=== PATIENT | female | born 1955 | race Asian ===

== ENCOUNTER → 2018-03-31 | Outpatient (CLI) | payer BC ==
[2018-03-31 08:29] LABS: Basophils # (auto) 0.1 uL; Basophils % (auto) 1.5 % (0.0-2.0); Eosinophils # (auto) 0.1 uL; Hematocrit 41.9 % (36.0-46.0); Hemoglobin 13.8 g/dL (12.2-16.2); Lymphocytes % (auto) 25.3 % (10.0-50.0); Mean Corpuscular Hemoglobin 31.9 pg (28.0-32.0); Mean Corpuscular Volume 96.7 fL (80.0-100.0); Monocytes # (auto) 0.4 uL; Monocytes % (auto) 9.5 % (0.0-12.0); Neutrophils # (auto) 2.4 uL; Neutrophils % (auto) 60.7 % (37.0-80.0); Platelet Count (auto) 290 10^3/uL (140-450); Red Blood Cells 4.33 10^6/uL (4.0-5.20); Red Cell Distribution Width 13.2 % (11.8-14.3); White Blood Cell 3.9 10^3/uL (4.4-10.8)
[2018-03-31 09:26] LABS: Albumin 3.8 g/dL (3.4-5.0); BUN/Creatinine Ratio 24.4; Bilirubin, Total 0.6 mg/dL (0.2-1.0); Calcium 8.7 mg/dL (8.5-10.1); Potassium 4.1 mmol/L (3.5-5.1); Total Protein 7.3 g/dL (6.4-8.2)
== END | disposition home or self-care (01) ==
LOC: LAB 07:48
PROVIDERS: ATTEND Internal Medicine
DX: Z00.01 Encounter for general adult medical examination with abnormal findings (principal); Z12.11 Encounter for screening for malignant neoplasm of colon; E03.9 Hypothyroidism, unspecified
CPT/HCPCS: 36415; 80053; 80061; 82274; 82306; 83036; 84443; 85025

== ENCOUNTER → 2019-03-07 | Outpatient (CLI) | payer BC ==
[2019-03-07 08:50] LABS: Basophils # (auto) 0.1 uL; Basophils % (auto) 1.1 % (0.0-2.0); Eosinophils # (auto) 0.1 uL; Eosinophils % (auto) 2.2 % (0.0-7.0); Hematocrit 40.9 % (36.0-46.0); Lymphocytes % (auto) 22.3 % (10.0-50.0); Mean Corpuscular Hemoglobin 32.7 pg (28.0-32.0); Mean Corpuscular Hgb Conc. 34.2 g/dL (32.0-36.0); Mean Corpuscular Volume 95.6 fL (80.0-100.0); Monocytes # (auto) 0.4 uL; Monocytes % (auto) 9.6 % (0.0-12.0); Neutrophils % (auto) 64.8 % (37.0-80.0); Platelet Count (auto) 384 10^3/uL (140-450); Red Blood Cells 4.28 10^6/uL (4.0-5.20); Red Cell Distribution Width 12.8 % (11.8-14.3); White Blood Cell 4.6 10^3/uL (4.4-10.8)
[2019-03-07 09:10] LABS: Albumin 3.5 g/dL (3.4-5.0); Calcium 8.8 mg/dL (8.5-10.1); Potassium 4.3 mmol/L (3.5-5.1)
[2019-03-07 09:16] LABS: BUN/Creatinine Ratio 15.5; Bilirubin, Total 0.7 mg/dL (0.2-1.0); Total Protein 7.1 g/dL (6.4-8.2)
[2019-03-07 09:29] LABS: Free T4 (Free Thyroxine) 1.15 ng/dL (0.89-1.76)
[2019-03-07 09:30] LABS: Free T3 2.95 pg/mL (2.3-4.2)
== END | disposition home or self-care (01) ==
LOC: LAB 08:20
PROVIDERS: ATTEND Internal Medicine
DX: Z12.11 Encounter for screening for malignant neoplasm of colon (principal); E03.9 Hypothyroidism, unspecified; Z83.3 Family history of diabetes mellitus
CPT/HCPCS: 36415; 80053; 80061; 82043; 82306; 83036; 84439; 84443; 84481; 85025

== ENCOUNTER → 2019-03-09 | Outpatient (CLI) | payer BC | END | disposition home or self-care (01) | LOC: LAB 14:05 | PROVIDERS: ATTEND Internal Medicine | DX: Z12.11 Encounter for screening for malignant neoplasm of colon (principal); E03.9 Hypothyroidism, unspecified; Z83.3 Family history of diabetes mellitus | CPT/HCPCS: 82274 ==

== ENCOUNTER → 2019-03-23 | Outpatient (CLI) | payer BC | END | disposition home or self-care (01) | LOC: XYW 08:58 | PROVIDERS: ATTEND Internal Medicine | DX: I07.1 Rheumatic tricuspid insufficiency (principal) | CPT/HCPCS: 93306 ==

== ENCOUNTER → 2019-05-25 | Outpatient (CLI) | payer BC ==
[~2019-05-25] VITALS: Ht 162.6 cm; Wt 65.8 kg
[~2019-05-25] MED LIST: ADENOSINE 55 MG in GIVE UN-DILUTED 0 ML IV STA
== END | disposition home or self-care (01) ==
LOC: XY 08:58
PROVIDERS: ATTEND Internal Medicine
DX: R07.9 Chest pain, unspecified (principal)
CPT/HCPCS: 78452; 93017; A9500; J0153

== ENCOUNTER → 2019-06-05 | Outpatient (CLI) | payer BC | END | disposition home or self-care (01) | LOC: US 10:57 | PROVIDERS: ATTEND Internal Medicine | DX: E04.1 Nontoxic single thyroid nodule (principal) | CPT/HCPCS: 10005; 10022; 76942; 88172 ==

== ENCOUNTER → 2020-03-26 | Outpatient (CLI) | payer BC ==
[2020-03-26 09:21] LABS: Basophils # (auto) 0 10 ^3/uL (0-0.2); Eosinophils # (auto) 0.1 10 ^3/uL (0-0.8); Hemoglobin 13.5 g/dL (12.2-16.2); Lymphocytes % (auto) 24.5 % (10.0-50.0); Mean Corpuscular Hgb Conc. 32.9 g/dL (32.0-36.0); Mean Corpuscular Volume 97.1 fL (80.0-100.0); Monocytes # (auto) 0.5 10 ^3/uL (0-1.3); Monocytes % (auto) 11.7 % (0.0-12.0); Neutrophils # (auto) 2.5 10 ^3/uL (1.6-8.6); Neutrophils % (auto) 59.8 % (37.0-80.0); Platelet Count (auto) 292 10^3/uL (140-450); Red Blood Cells 4.22 10^6/uL (4.0-5.20); Red Cell Distribution Width 13.2 % (11.8-14.3); White Blood Cell 4.2 10^3/uL (4.4-10.8)
[2020-03-26 09:59] LABS: Albumin 3.9 g/dL (3.4-5.0); Calcium 8.7 mg/dL (8.5-10.1); Potassium 4.1 mmol/L (3.5-5.1)
[2020-03-26 10:06] LABS: BUN/Creatinine Ratio 19.5; Bilirubin, Total 0.6 mg/dL (0.2-1.0); Total Protein 7.1 g/dL (6.4-8.2)
[2020-03-26 10:09] LABS: Free T4 (Free Thyroxine) 1.25 ng/dL (0.89-1.76)
[2020-03-26 10:10] LABS: Free T3 2.96 pg/mL (2.3-4.2)
== END | disposition home or self-care (01) ==
LOC: LAB 08:26
PROVIDERS: ATTEND Internal Medicine
DX: E04.1 Nontoxic single thyroid nodule (principal); E03.9 Hypothyroidism, unspecified; E55.9 Vitamin D deficiency, unspecified; Z83.3 Family history of diabetes mellitus
CPT/HCPCS: 36415; 80053; 80061; 82306; 84439; 84443; 84481; 85025

== ENCOUNTER → 2020-04-02 | Outpatient (CLI) | payer BC | END | disposition home or self-care (01) | LOC: LAB 10:28 | PROVIDERS: ATTEND Internal Medicine | DX: E04.1 Nontoxic single thyroid nodule (principal); E03.9 Hypothyroidism, unspecified; E55.9 Vitamin D deficiency, unspecified; Z83.3 Family history of diabetes mellitus | CPT/HCPCS: 82274 ==

== ENCOUNTER → 2021-03-18 | Outpatient (CLI) | payer BC ==
[2021-03-18 07:38] LABS: Basophils # (auto) 0.1 10 ^3/uL (0-0.2); Basophils % (auto) 0.9 % (0.0-2.0); Eosinophils # (auto) 0.2 10 ^3/uL (0-0.8); Eosinophils % (auto) 3.9 % (0.0-7.0); Hematocrit 41.4 % (36.0-46.0); Hemoglobin 13.9 g/dL (12.2-16.2); Lymphocytes # (auto) 1.7 10 ^3/uL (0.4-5.4); Lymphocytes % (auto) 27.4 % (10.0-50.0); Mean Corpuscular Hemoglobin 32.3 pg (28.0-32.0); Mean Corpuscular Hgb Conc. 33.7 g/dL (32.0-36.0); Mean Corpuscular Volume 95.8 fL (80.0-100.0); Monocytes # (auto) 0.6 10 ^3/uL (0-1.3); Monocytes % (auto) 9.2 % (0.0-12.0); Neutrophils # (auto) 3.6 10 ^3/uL (1.6-8.6); Neutrophils % (auto) 58.6 % (37.0-80.0); Nucleated Red Blood Cells % 0.1 %; Red Blood Cells 4.32 10^6/uL (4.0-5.20); White Blood Cell 6.1 10^3/uL (4.4-10.8)
[2021-03-18 08:11] LABS: Albumin 3.6 g/dL (3.4-5.0); Calcium 8.9 mg/dL (8.5-10.1)
[2021-03-18 08:16] LABS: BUN/Creatinine Ratio 21.1; Bilirubin, Total 0.7 mg/dL (0.2-1.0); Total Protein 7.4 g/dL (6.4-8.2)
== END | disposition home or self-care (01) ==
LOC: LAB 07:11
PROVIDERS: ATTEND Internal Medicine
DX: Z12.11 Encounter for screening for malignant neoplasm of colon (principal); Z00.00 Encounter for general adult medical examination without abnormal findings; E03.9 Hypothyroidism, unspecified; E55.9 Vitamin D deficiency, unspecified
CPT/HCPCS: 36415; 80053; 80061; 82274; 82306; 84439; 84443; 85025

== ENCOUNTER → 2021-07-23 | Outpatient (CLI) | payer BC | END | disposition home or self-care (01) | LOC: LAB 08:18 | PROVIDERS: ATTEND Nurse Practitioner Family | DX: Z20.822 Contact with and (suspected) exposure to COVID-19 (principal) | CPT/HCPCS: C9803; U0003 ==

== ENCOUNTER → 2021-12-02 | Outpatient (CLI) | payer BC ==
[2021-12-02 12:53] LABS: Albumin 3.7 g/dL (3.4-5.0); BUN/Creatinine Ratio 24.1; Calcium 8.6 mg/dL (8.5-10.1); Potassium 4.1 mmol/L (3.5-5.1)
[2021-12-02 12:56] LABS: Bilirubin, Total 0.4 mg/dL (0.2-1.0); Total Protein 7.2 g/dL (6.4-8.2)
== END | disposition home or self-care (01) ==
LOC: LAB 12:25
PROVIDERS: ATTEND Internal Medicine Endocrinology, Diabetes & Metabolism
DX: E03.9 Hypothyroidism, unspecified (principal)
CPT/HCPCS: 36415; 80053; 84439; 84443

== ENCOUNTER → 2022-03-22 | Outpatient (CLI) | payer BC ==
[2022-03-22 08:26] LABS: Basophils # (auto) 0 10 ^3/uL (0-0.2); Basophils % (auto) 0.9 % (0.0-2.0); Eosinophils # (auto) 0.1 10 ^3/uL (0-0.8); Eosinophils % (auto) 2.2 % (0.0-7.0); Hematocrit 41.3 % (36.0-46.0); Hemoglobin 14.2 g/dL (12.2-16.2); Lymphocytes # (auto) 1.6 10 ^3/uL (0.4-5.4); Lymphocytes % (auto) 27.7 % (10.0-50.0); Mean Corpuscular Hemoglobin 32.9 pg (28.0-32.0); Mean Corpuscular Hgb Conc. 34.4 g/dL (32.0-36.0); Mean Corpuscular Volume 95.6 fL (80.0-100.0); Monocytes # (auto) 0.6 10 ^3/uL (0-1.3); Monocytes % (auto) 10.1 % (0.0-12.0); Neutrophils # (auto) 3.3 10 ^3/uL (1.6-8.6); Neutrophils % (auto) 59.1 % (37.0-80.0); Red Blood Cells 4.32 10^6/uL (4.0-5.20); Red Cell Distribution Width 12.9 % (11.8-14.3); White Blood Cell 5.6 10^3/uL (4.4-10.8)
[2022-03-22 09:05] LABS: Potassium 4.1 mmol/L (3.5-5.1)
[2022-03-22 09:18] LABS: Albumin 3.8 g/dL (3.4-5.0); Bilirubin, Total 0.6 mg/dL (0.2-1.0); Calcium 9.1 mg/dL (8.5-10.1); Total Protein 7.4 g/dL (6.4-8.2)
== END | disposition home or self-care (01) ==
LOC: LAB 08:03
PROVIDERS: ATTEND Internal Medicine
DX: E55.9 Vitamin D deficiency, unspecified (principal); E03.9 Hypothyroidism, unspecified; E11.8 Type 2 diabetes mellitus with unspecified complications
CPT/HCPCS: 36415; 80053; 80061; 82270; 82306; 83036; 84443; 85025

== ENCOUNTER → 2022-03-29 | Outpatient (CLI) | payer BC | END | disposition home or self-care (01) | LOC: LAB 13:06 | PROVIDERS: ATTEND Internal Medicine | DX: Z12.11 Encounter for screening for malignant neoplasm of colon (principal) | CPT/HCPCS: 82270 ==

== ENCOUNTER → 2022-04-28 | Outpatient (CLI) | payer BC ==
[2022-04-28 13:13] LABS: BUN/Creatinine Ratio 21.7; Calcium 8.8 mg/dL (8.5-10.1); Potassium 4.1 mmol/L (3.5-5.1)
== END | disposition home or self-care (01) ==
LOC: LAB 11:51
PROVIDERS: ATTEND Internal Medicine
DX: R10.30 Lower abdominal pain, unspecified (principal)
CPT/HCPCS: 36415; 80048

== ENCOUNTER → 2023-01-20 | Outpatient (CLI) | payer OTHER ==
[2023-01-20 10:30] LABS: Basophils # (auto) 0.1 10 ^3/uL (0-0.2); Basophils % (auto) 1.8 % (0.0-2.0); Eosinophils # (auto) 0.2 10 ^3/uL (0-0.8); Eosinophils % (auto) 3.2 % (0.0-7.0); Hematocrit 43.6 % (36.0-46.0); Hemoglobin 14.6 g/dL (12.2-16.2); Lymphocytes # (auto) 1.3 10 ^3/uL (0.4-5.4); Lymphocytes % (auto) 26.3 % (10.0-50.0); Mean Corpuscular Hemoglobin 32.2 pg (28.0-32.0); Mean Corpuscular Hgb Conc. 33.5 g/dL (32.0-36.0); Mean Corpuscular Volume 96.1 fL (80.0-100.0); Monocytes # (auto) 0.5 10 ^3/uL (0-1.3); Monocytes % (auto) 11.1 % (0.0-12.0); Neutrophils # (auto) 2.8 10 ^3/uL (1.6-8.6); Neutrophils % (auto) 57.6 % (37.0-80.0); Nucleated Red Blood Cells % 0.1 %; Red Blood Cells 4.54 10^6/uL (4.0-5.20); Red Cell Distribution Width 12.9 % (11.8-14.3); White Blood Cell 4.9 10^3/uL (4.4-10.8)
[2023-01-20 10:45] LABS: Urine Blood Negative /uL (Negative); Urine Specific Gravity 1.019 (1.001-1.035)
[2023-01-20 11:11] LABS: Calcium 8.8 mg/dL (8.5-10.1)
[2023-01-20 11:17] LABS: BUN/Creatinine Ratio 23.2 (10.0-20.0); Bilirubin, Total 0.6 mg/dL (0.2-1.0); Total Protein 7.5 g/dL (6.4-8.2)
[2023-01-20 11:19] LABS: Free T4 (Free Thyroxine) 1.1 ng/dL (0.89-1.76); T3 Total 1.07 ng/mL (0.60-1.81)
== END | disposition home or self-care (01) ==
LOC: LAB 10:09
PROVIDERS: ATTEND Student in an Organized Health Care Education/Training Program
DX: Z12.11 Encounter for screening for malignant neoplasm of colon (principal); E55.9 Vitamin D deficiency, unspecified; E03.9 Hypothyroidism, unspecified; L65.9 Nonscarring hair loss, unspecified; E04.1 Nontoxic single thyroid nodule
CPT/HCPCS: 36415; 80053; 80061; 81003; 82306; 83036; 84439; 84443; 84480; 85025

== ENCOUNTER → 2024-03-21 | Outpatient (CLI) | payer OTHER ==
[~2024-03-21] MED LIST changes: -ADENOSINE 55 MG in GIVE UN-DILUTED 0 ML IV STA; +CHOL20007 OR; +LEVO-848 PO; +LEVO75TA6 PO
[2024-03-21 08:54] LABS: Urine Bacteria None Seen /hpf (None Seen)
[2024-03-21 09:09] LABS: Basophils # (auto) 0.1 10 ^3/uL (0-0.2); Basophils % (auto) 1.1 % (0.0-2.0); Eosinophils # (auto) 0.1 10 ^3/uL (0-0.8); Eosinophils % (auto) 2.6 % (0.0-7.0); Hematocrit 41.3 % (36.0-46.0); Lymphocytes # (auto) 1.4 10 ^3/uL (0.4-5.4); Lymphocytes % (auto) 25.9 % (10.0-50.0); Mean Corpuscular Hemoglobin 32.9 pg (28.0-32.0); Mean Corpuscular Volume 96.8 fL (80.0-100.0); Monocytes # (auto) 0.6 10 ^3/uL (0-1.3); Monocytes % (auto) 10.5 % (0.0-12.0); Neutrophils # (auto) 3.3 10 ^3/uL (1.6-8.6); Neutrophils % (auto) 59.9 % (37.0-80.0); Nucleated Red Blood Cells % 0.1 %; Red Blood Cells 4.26 10^6/uL (4.0-5.20); Red Cell Distribution Width 12.9 % (11.8-14.3); White Blood Cell 5.5 10^3/uL (4.4-10.8)
[2024-03-21 09:12] LABS: Urine Blood Negative /uL (Negative); Urine Clarity Clear (Clear); Urine Color Yellow (Yellow); Urine Protein, UAD Negative (Negative); Urine Specific Gravity 1.028 (1.001-1.035); Urine Urobilinogen Normal (Negative); Urine WBC 7 /hpf (0 - 5)
[2024-03-21 09:43] LABS: Triglycerides 66 mg/dL (< 150)
[2024-03-21 09:44] LABS: Alanine Aminotransferase 20 U/L (7-40); Albumin 4.2 g/dL (3.2-4.8); Alkaline Phosphatase 71 U/L (46-116); Anion Gap 4 (5-15); Aspartate Aminotransferase 17 U/L (13-40); Bilirubin, Total 0.7 mg/dL (0.2-1.0); Blood Urea Nitrogen 15 mg/dL (9-23); Calcium 9.7 mg/dL (8.7-10.4); Carbon Dioxide 31 mmol/L (20-30); Chloride 107 mmol/L (98-107); Cholesterol 164 mg/dL (< 200); Glucose 99 mg/dL (74-106); HDL Cholesterol 66 mg/dL (40-59); LDL Cholesterol 85 mg/dL (< 100); Potassium 4.2 mmol/L (3.5-5.1); Sodium 142 mmol/L (136-145); Total Protein 6.9 g/dL (5.7-8.2)
[2024-03-21 09:57] LABS: Uric Acid 4.6 mg/dL (3.1-7.8)
[2024-03-21 10:22] LABS: Free T4 (Free Thyroxine) 1.47 ng/dL (0.89-1.76); T3 Total 1.1 ng/mL (0.60-1.81)
== END | disposition home or self-care (01) ==
LOC: LAB 08:48
PROVIDERS: ATTEND Student in an Organized Health Care Education/Training Program
DX: Z12.11 Encounter for screening for malignant neoplasm of colon (principal); R79.89 Other specified abnormal findings of blood chemistry; E04.2 Nontoxic multinodular goiter
CPT/HCPCS: 36415; 80053; 80061; 81001; 83036; 84439; 84443; 84480; 84550; 85025

== ENCOUNTER → 2024-03-26 | Outpatient (CLI) | payer OTHER | END | disposition home or self-care (01) | LOC: LAB 07:57 | PROVIDERS: ATTEND Student in an Organized Health Care Education/Training Program | DX: Z12.11 Encounter for screening for malignant neoplasm of colon (principal); E04.2 Nontoxic multinodular goiter; R79.89 Other specified abnormal findings of blood chemistry | CPT/HCPCS: 82270 ==

== ENCOUNTER 2024-08-09 13:38 | Emergency (ER) | payer OTHER ==
[~2024-08-09] VITALS: Ht 165.1 cm; Wt 68.0 kg
[2024-08-09] MEDS: KETOROLAC TROMETH 30 MG/ML 1ML VIAL IV ONE ×2 (16:05→16:14)
--- NOTE | 2024-08-09 16:09 | DVH ---
CLINICAL INDICATION: Trauma PAIN FALL TECHNIQUE: XY L SHOULDER 2+ VIEW XRAY Comparison: None FINDINGS/IMPRESSION: : No joint dislocation. Mildly displaced and comminuted fracture of the proximal humeral head.
--- NOTE | 2024-08-09 16:26 | ED.PDOC ---
Musculoskeletal HPI Comments 69Y F presents to ED for chief complaint lt shoulder pain s/p fall. Pt states she fell in the parking lot of [facility] and landed on her lt shoulder. Pt is rt- handed. Pt denies LOC. No other symptoms reported. Chief Complaint: Fall Injury Time Seen by MD: 14:10 Reviewed Notes: Nurses Notes, Medications, Allergies Allergies: Coded Allergies: NO KNOWN ALLERGIES (Unverified , 05/25/19) Home Meds Reported Medications Cholecalciferol (VITAMIN D3) 2,000 Unit Tab, 2000 UNIT OR DAILY, TAB 06/23/22 Levothyroxine Sodium (Levothyroxine Sodium) 75 Mcg Tab, 75 MCG PO DAILY, TAB 06/23/22 Levothyroxine Sodium (SYNTHROID TABLET) 50 Mcg Tb, 50 MCG PO DAILY, TAB 06/23/22 Information Source: Patient Mode of Arrival: Ambulatory Location: Left Extremity Location: Shoulder Timing: Hours Severity: Moderate Able to Move Extremity: Yes Bear Weight: Limited Pain: Moderate Hand Dominance: Right Mechanism: Unknown Circumstances: Fall Onset of Symptoms: After Trauma Symptoms: Swelling, Pain DVT Risk Factors: NONE Last Tetanus: UTD Associated signs and symptoms: Shoulder pain (left), Knee pain (right) Past Medical History PAST MEDICAL HISTORY: Denies Surgical History: Denies all surgeries TEA ROOM MANAGER History: No Pertinent TEA ROOM MANAGER History Family History Family History: Unknown Social History Smoker: Non-Smoker Alcohol: Denies ETOH Use Drugs: Denies Drug Use Lives In: Home Constitutional: denies: chills, diaphoresis, fatigue, fever, malaise, sweats, weakness, others EENTM: denies: blurred vision, double vision, ear bleeding, ear discharge, ear drainage, ear pain, ear ringing, eye pain, eye redness, hearing loss, mouth pain, mouth swelling, nasal discharge, nose bleeding, nose congestion, nose pain, photophobia, tearing, throat pain, throat swelling, voice changes, others Respiratory: denies: cough, hemoptysis, orthopnea, SOB at rest, shortness of b reath, SOB with excertion, stridor, wheezing, others Cardiovascular: denies: chest pain, dizzy spells, diaphoresis, Dyspnea on exertion, edema, irregular heart beat, left arm pain, lightheadedness, palpitations, PND, syncope, others Gastrointestinal: denies: abdomen distended, abdominal pain, blood streaked bowels, constipated, diarrhea, dysphagia, difficulty swallowing, hematemesis, melena, nausea, poor appetite, poor fluid intake, rectal bleeding, rectal pain, vomiting, others Genitourinary: denies: abnormal vagina bleeding, burning, dyspareunia, dysuria, flank pain, frequency, hematuria, incontinence, pain, , vagina discharge, urgency, others Neurological: denies: dizziness, fainting, headache, left sided numbness, left sided weakness, numbness, paresthesia, pre-existing deficit, right sided numbness, right sided weakness, seizure, speech problems, tingling, tremors, weakness, others Musculoskeletal: reports: others (lt shoulder pain); denies: back pain, gout, joint pain, joint swelling, muscle pain, muscle stiffness, neck pain Integumetry: reports: wounds (abrasions to the rt knee); denies: bruises, change in color, change in hair/nails, dryness, laceration, lesions, lumps, rash, others Allergic/Immunocompromised: denies: Difficulty Healing, Frequent Infections, Hives, Itching, others Hematologic/Lymphatic: denies: anemia, blood clots, easy bleeding, easy bruising, swollen glands, others Endocrine: denies: excessive hunger, excessive sweating, excessive thirst, excessive urination, flushing, intolerance to cold, intolerance to heat, unexplained weight gain, unexplained weight loss, others Psychiatric: denies: anxiety, bipolar disorder, depression, hopeless, panic disorder, schizophrenia, sleepless, suicidal, others All Other Systems: Reviewed and Negative Physical Exam General Appearance: No Apparent Distress, Normal HEENT: Normal ENT Inspection, Pharynx Normal, TMs Normal Neck: Full Range of Motion, Non-Tender, Normal, Normal Inspection Respiratory: Chest Non-Tender, Lungs Clear, No Accessory Muscle Use, No Respiratory Distress, Normal Breath Sounds Cardiovascular: No Edema, No JVD, No Murmur, No Gallop, Normal Peripheral Pulses, Regular Rate/Rhythm Breast Exam: Deferred Gastrointestinal: No Organomegaly, Non Tender, No Pulsatile Mass, Normal Bowel Sounds, Soft Genitalia: Deferred Pelvic: Deferred Rectal: Deferred Extremities: No calf tenderness, Normal capillary refill, Normal inspection, Normal range of motion, Non-tender, No pedal edema Musculoskeletal : Location: Left Extremity Location: Shoulder Apperance: Limited ROM, Tenderness: Moderate Neurologic: Alert, riveter pneumatic II-XII nml as Tested, No Motor Deficits, Normal Affect, Normal Mood, No Sensory Deficits Cerebellar Function: Normal Reflexes: Normal Skin: Dry, Normal Color, Warm, Other (rt knee: abrasions) Lymphatic: No Adenopathy Was a procedure done? Was a procedure done?: No Differential Diagnosis EXT Differential Diagnosis: Fracture, Sprain, Dislocation, Strain X-Ray, Labs, Meds, VS Vital Signs Date Time Temp Pulse Resp B/P (MAP) Pulse Ox O2 Delivery O2 Flow Rate FiO2 08/09/24 14:00 97.5 60 20 105/38 (60) 95 Current Medications Medications (Trade) Dose Ordered Sig/Jose Route Start Time Stop Time Status Last Admin Ketorolac Tromethamine (Toradol Injection) 15 mg ONCE ONCE IV 08/09/24 16:15 08/09/24 16:16 DC 08/09/24 16:14 [place] [address] Ph: [phone] DIAGNOSTIC IMAGING Diagnostic Imaging Report : [id number] Signed PATIENT: EBER NAVARRETE ACCT: [id number] UNIT: [id number] : 1955 LOC: ER ROOM / BED: / AGE / SEX: 69 / F ADM STATUS: REG ER SERVICE 1403 ORDERING PHYSICIAN: ANDERS NELSON MD PROCEDURE(s): LSHD2 - L SHOULDER 2+ VIEW XRAY REASON: PAIN FALL ORDER NUMBER(s): [id number], ACCESSION NUMBER(s): [id number] CLINICAL INDICATION: Trauma PAIN FALL TECHNIQUE: XY L SHOULDER 2+ VIEW XRAY Comparison: None FINDINGS/IMPRESSION: : No joint dislocation. Mildly displaced and comminuted fracture of the proximal humeral head. ATED BY: MITCH GRIFFITHS MD DICTATED DATE/TIME: 08/09/241604 SIGNED BY: MITCH GRIFFITHS MD SIGNED DATE/TIME: 08/09/241604 CC: Time of 1ST Reevaluation: 14:40 Reevaluation 1ST: Unchanged Patient Education/Counseling: Diagnosis, Treatment Family Education/Counseling: No Family Present Departure 1 Departure Time of Disposition: 17:17 (Patient with a left proximal humeral fracture. ) Impression: Primary Impression: Proximal humerus fracture Qualified Codes: S42.295A - Other nondisplaced fracture of upper end of left humerus, initial encounter for closed fracture Disposition: HOME / SELF CARE / HOMELESS Condition: Stable Referrals: TEMITOPE RING MD Additional Instructions: You have a proximal humerus fracture. You were referred to orthopedic surgery. Please call for an appointment. You were prescribed Toradol. Please take as directed. e-Prescriptions Ketorolac Tromethamine (Ketorolac Tromethamine) 10 Mg Tab 1 TAB PO TID PRN for 10 Days, #30 TAB Prov: ANDERS NELSON MD 08/09/24 Discharged With: Significant Other Critical Care Note Critical Care Time?: No Stability Stability form required: No Heart Score Heart Score: Heart Score Response (Comments) Value History N/A 0 EKG N/A 0 Age N/A 0 Risk Factors N/A 0 Troponin N/A 0 Total 0 I personally scribed for ANDERS NELSON MD ([email or web address]) on 08/09/24 at 16:26. Electronically submitted by Tonya Kilgore ([email or web address]). ANDERS NELSON MD Aug 09, 2024 16:26
[2024-08-09] MEDS ORDERED: KETO10TA PO (17:15)
[2024-08-09] MEDS: TETANUS-DIPTH-ACEL PERTUSSIS 0.5ML SYR Tdap IM ONE (17:17)
[2024-08-09 17:43] VITALS: BP 127/61; PULSE 61; RESP 18; TEMP 98.2; O2SAT 98
== END 2024-08-09 17:47 | disposition home or self-care (01) ==
LOC: ER 13:38
DX: S42.202A Unspecified fracture of upper end of left humerus, initial encounter for closed fracture (principal); Z79.899 Other long term (current) drug therapy; W19.XXXA Unspecified fall, initial encounter; Y93.89 Activity, other specified; Y92.481 Parking lot as the place of occurrence of the external cause; Y99.8 Other external cause status
CPT/HCPCS: 73030; 90471; 90715; 96374; 99284; J1885

== ENCOUNTER 2024-08-30 08:11 | Day surgery (SDC) | payer OTHER ==
[2024-08-27 15:12] LABS: Urine Bacteria None Seen /hpf (None Seen)
[2024-08-27 15:19] LABS: Basophils # (auto) 0 10 ^3/uL (0-0.2); Basophils % (auto) 0.8 % (0.0-2.0); Eosinophils # (auto) 0.1 10 ^3/uL (0-0.8); Eosinophils % (auto) 1.5 % (0.0-7.0); Hemoglobin 13.7 g/dL (12.2-16.2); Lymphocytes # (auto) 1.3 10 ^3/uL (0.4-5.4); Lymphocytes % (auto) 21.7 % (10.0-50.0); Mean Corpuscular Hgb Conc. 34.2 g/dL (32.0-36.0); Mean Corpuscular Volume 96.7 fL (80.0-100.0); Monocytes # (auto) 0.6 10 ^3/uL (0-1.3); Monocytes % (auto) 9.6 % (0.0-12.0); Neutrophils # (auto) 3.8 10 ^3/uL (1.6-8.6); Neutrophils % (auto) 66.4 % (37.0-80.0); Nucleated Red Blood Cells % 0.1 %; Platelet Count (auto) 418 10^3/uL (140-450); Red Blood Cells 4.14 10^6/uL (4.0-5.20); Red Cell Distribution Width 13.7 % (11.8-14.3); White Blood Cell 5.8 10^3/uL (4.4-10.8)
[2024-08-27 15:31] LABS: Urine Blood Negative /uL (Negative); Urine Clarity Clear (Clear); Urine Color Light-Yellow (Yellow); Urine Protein, UAD Negative (Negative); Urine Specific Gravity 1.012 (1.001-1.035); Urine Squamous Epithelial Cell FEW /hpf (<5); Urine Urobilinogen Normal (Negative); Urine WBC 23 /hpf (0 - 5)
[2024-08-27 15:32] LABS: INR 0.98 (0.9-1.15); Partial Thromboplastin Time 26.6 SEC (24.5-34.5); Prothrombin Time 10.4 sec (9.3-11.8)
[2024-08-27 15:47] LABS: Alanine Aminotransferase 14 U/L (7-40); Alkaline Phosphatase 99 U/L (46-116); Anion Gap 5 (5-15); BUN/Creatinine Ratio 14.7 (10.0-20.0); Blood Urea Nitrogen 14 mg/dL (9-23); Calcium 10.3 mg/dL (8.7-10.4); Carbon Dioxide 29 mmol/L (20-31); Chloride 105 mmol/L (98-107); Potassium 3.8 mmol/L (3.5-5.1); Sodium 139 mmol/L (136-145)
[2024-08-27 15:48] LABS: Albumin 4.6 g/dL (3.2-4.8); Aspartate Aminotransferase 15 U/L (13-40); Bilirubin, Total 0.5 mg/dL (0.2-1.0); Glucose 120 mg/dL (74-106); Total Protein 7.4 g/dL (5.7-8.2)
[~2024-08-30] VITALS: Ht 165.1 cm; Wt 68.0 kg
[~2024-08-30 08:11] MED LIST changes: +BIOTPOW17 PO; +MIN25T PO
[2024-08-30] MEDS ORDERED: ceFAZolin 2 GM/D5W100ml 100 ML IV ONE (08:27)
[2024-08-30] MEDS ORDERED: TRANEXAMIC ACID 20 ML ONE (10:18)
[2024-08-30] MEDS ORDERED: BUPIVACAINE HCL 50 ML ONE (10:19)
[2024-08-30] MEDS ORDERED: MIDAZOLAM HCL 2MG/2ML 2ml VIAL (1mg/ml) ONE (10:20)
[2024-08-30] MEDS ORDERED: PROPOFOL 10 MG/ML 20 ML IV ONE (10:20)
[2024-08-30] MEDS ORDERED: LIDOCAINE 1% INJ PF 5ML AMP ONE (10:20)
[2024-08-30] MEDS ORDERED: fentaNYL CITRATE 100 MCG/2 ML VL ONE (10:20)
[2024-08-30] MEDS ORDERED: ROCURONIUM 10MG/ML 10ML VIAL IV ONE (10:21)
[2024-08-30] MEDS ORDERED: ePHEDrine SULFATE 50 MG/ML AMP ONE (11:07)
[2024-08-30] MEDS ORDERED: ONDANSETRON HCL 4 MG/2 ML VIAL ONE (11:17)
[2024-08-30] MEDS: VANCOMYCIN HCL 1000 MG VL ONE (12:00)
[2024-08-30] MEDS: BUPIVACAINE 0.5% INJ 50ML VIAL IJ ONE (12:01)
[2024-08-30] MEDS ORDERED: SUGAMMADEX 200mg/2ml Vial (100MG/ML) IV ONE (12:23)
[2024-08-30 12:38] VITALS: PULSE 87; RESP 14; TEMP 97.6
[2024-08-30] MEDS ORDERED: ONDANSETRON HCL 4 MG/2 ML VIAL IV ONE (13:00)
[2024-08-30] MEDS ORDERED: HYDROmorphone HCL 2 MG/ML VL/or syr IV PRN (13:00)
[2024-08-30] MEDS ORDERED: HYDR1TAB97 PO (13:16)
[2024-08-30] MEDS ORDERED: CEPH500C PO (13:18)
[2024-08-30 13:23] VITALS: BP 125/65; PULSE 80; RESP 12; O2SAT 95
--- NOTE | 2024-08-30 13:32 | DVHOP2 ---
Operative Report - 2 Report Details Date: 08/30/24 Preop Diagnosis: Left shoulder greater tuberosity fracture Postop Diagnosis: Left shoulder greater tuberosity fracture Surgeon: Valente Banegas MD Anesthesiologist: Doroteo calixto CRNA Anesthesia: General, Regional Implant: [place] x2, Quattro x 1, JuggerKnot x 1 Consent: The patient was informed of the risks and benefits of the procedure. These include but are not limited to complications of anesthesia, postoperative infection, incomplete relief of symptoms, recurrence of symptoms, damage to blood vessels, nerves and tendons, deep venous thrombosis, pulmonary embolism and possible need for repeat surgery in the future. Complications: None Estimated Blood Loss: 25 mL Indications for Surgery: The patient is a 69-year-old female who presented to the clinic with a history of greater tuberosity fracture. Show significant displacement approximately 1 cm posteriorly. Nonoperative and operative management options were discussed. Initially nonoperative management was recommended given the patient's age and nondominant side. However after thorough discussion, she wanted surgical o ption. Benefits, risks and treatment alternatives were discussed. She is otherwise very active and goes to the gym every day. She does other outdoor activities as well. She has a doctor who understands the complications and risks very well. All her questions were answered and she wanted to proceed with surgery. Equivalent outcomes were nonsurgical options were also discussed. Surgical complications including nonunion, malunion, axillary nerve palsy, neurovascular injury, arthrofibrosis, loss of limb or life were discussed. Name of Procedure Performed Left greater tuberosity open reduction internal fixation and rotator cuff repair Procedure Details Procedure Details: The patient was identified in the preoperative holding area surgical site was marked. The consent was verified. She was brought into the operating room and placed supine on the operating table. General anesthesia was administered. Intravenous antibiotics were given. The extremity was prepped and draped in usual sterile manner. A time-out was called out to confirm the identity of the patient, the nature of surgery, the site of surgery, the availability of implants and x-rays and allergies to medications. She was brought up in the beach chair position. All the bony prominences were padded. The C-arm was on the opposite side. The acromion was marked. A midlateral approach was used. The skin incision was made from the acromion to approximately 4 cm. Axillary nerve safe zone was marked. The skin and the subcutaneous tissue were dissected the deep fascia was incised. The deltoid raphe was identified. This was split and the greater tuberosity fracture was clearly identified. The rotator cuff tear was noted and the anterior portion of the greater tuberosity, supraspinatus and anterior half of the infraspinatus was detached with a small sliver of bone. The greater tuberosity was approximately 1 cm displaced. The side started to heal. This was mobilized and brought into the anatomical position. Care was taken to protect the axillary nerve. This was palpated and the position was noted. I decided to fix the greater tuberosity with bioabsorbable anchors. Two guidewires were inserted. The drill guide was inserted. Next a 36 mm screw and a 30 mm screw were inserted for bicortical purchase. Excellent fixation was noted. Compression of the fracture was also noted. The rotator cuff tear was now fixed with a double row technique. A medial all suture anchor was used. All the four sutures were passed through the rotator cuff tendon using a nCrypted Cloud suture Passer. A self locking sliding knot was tied. Excellent fixation was noted. I decided to do a lateral row for better compression as the greater tuberosity was still little bit elevated. All the four sutures were now inserted into the lateral row anchor. This was now tapped into position. Good compression was noted. X-rays were obtained throughout the procedure. The arm was internally and externally rotated to review the fixation and the approximation of the greater tuberosity which was found to be anatomical. The bone quality was found to be osteoporotic consistent with her age. The screw fixation was good but not great. Irrigation was given. The deltoid interval was closed with suture tape. The axillary nerve was palpated and was found to be intact throughout the procedure The skin and the subcutaneous tissue were closed with 3-0 Monocryl and 2-0 Vicryl respectively. Sterile dressing was applied and arm was placed in a shoulder immobilizer Disposition: Good, the patient was extubated and taken to the recovery without any complication Plan: To stay in brace at all times. Follow up in two weeks. Condition Good Disposition Home VALENTE BANEGAS MD Aug 30, 2024 13:32
--- NOTE | 2024-08-30 17:31 | DVH ---
CLINICAL INDICATION: LEFT SHOULDER ORIF TECHNIQUE: 12 radiographic views of the left shoulder were obtained. Comparison: XY L SHOULDER 2+ VIEW XRAY on DOS: 08/09/24 FINDINGS/IMPRESSION: 56.1 seconds total fluoro time Cumulative dose: 3.51 mGy
--- NOTE | 2024-08-30 17:41 | DVH ---
C-ARM FLUOROSCOPY: PROCEDURE: Left shoulder surgery Technique: Surgery on the left shoulder. Clinical history: left shoulder pain FLUOROSCOPY TIME: 56.1 seconds DAP: 3.51 mgy FINDINGS: No operative images sent with this study Only dose page visualized. IMPRESSION: 1. Please refer to surgical report for detailed findings.
== END 2024-08-30 13:35 | disposition home or self-care (01) ==
LOC: EEVIPCON → SUR 08:11
PROVIDERS: ATTEND Orthopaedic Surgery Sports Medicine
DX: S42.252A Displaced fracture of greater tuberosity of left humerus, initial encounter for closed fracture (principal); S42.292A Other displaced fracture of upper end of left humerus, initial encounter for closed fracture; X58.XXXA Exposure to other specified factors, initial encounter; Y93.89 Activity, other specified; Y92.89 Other specified places as the place of occurrence of the external cause; Y99.8 Other external cause status; K44.9 Diaphragmatic hernia without obstruction or gangrene; E03.9 Hypothyroidism, unspecified; Z79.890 Hormone replacement therapy; Z79.899 Other long term (current) drug therapy; Z98.890 Other specified postprocedural states; Z82.49 Family history of ischemic heart disease and other diseases of the circulatory system; Z82.5 Family history of asthma and other chronic lower respiratory diseases; Z83.2 Family history of diseases of the blood and blood-forming organs and certain disorders involving the immune mechanism
CPT/HCPCS: 23410; 23630; 36415; 73020; 80053; 81001; 85025; 85610; 85730; C1713; J2250; J2405; J2704; J3010; J3370; J3490; J7030; 76000

== ENCOUNTER 2025-01-17 08:54 | Outpatient (CLI) | payer OTHER ==
[~2025-01-17] VITALS: Ht 165.1 cm; Wt 66.2 kg
[~2025-01-17 08:54] MED LIST changes: +CEPH500C PO; +HYDR1TAB97 PO
--- NOTE | 2025-01-17 11:15 | DVHCARD ---
Cardiology Stress Test [place] Treadmill Stress Test [place] Referring MD: MD Villa Protocol: Jl (with cardiolite) Reason for referral: Chest Pain Target heart Rate:@85%: 126 Percent MPHR: 149 METS: 10.1 Resting Heart rate: 59 Resting Blood Pressure: 149/80 Exercise Heart Rate: 151 Exercise Blood Pressure: 206/79 Baseline EKG: Sinus bradycardia Stress EKG: Sinus tachycardia Functional Capacity: Good Normal Heart Rate Response: Adequate Blood Pressure Response: Hypertensive Clinical response: Non-ischemic Arrhythmia?: No Cardiolite Injected?: Yes ST-T Changes: Non/Minimal Probability of Inducible Ische: Perfusion result pending Date of Service: Jan 17, 2025 Billing Provider: SARTHAK COCHRAN Cardiology Common Codes: PROCEDURE ONLY Treadmill W/Cardiolite Nuclear: [id number], INTERP, RPT SARTHAK COCHRAN Jan 17, 2025 11:15
--- NOTE | 2025-01-21 09:31 | DVHSR ---
APPROVED REPORT Exam: Nuclear Stress Test Indication: Chest pain BMI: 0 Medical History Medical History: HTN, Hyperlipidemia Stress Test Details Stress Test: Exercise stress testing was performed using a Jl protocol. HR Resting HR: 59 bpmMax Heart Rate (APMHR): 149.585725 bpm Max HR Achieved: 151 bpmTarget HR (85% APMHR): 126.310532 bpm % of APMHR: 101.34 Recovery HR: 69 bpm BP Resting BP: 149/80 mmHg Recovery BP: 156/86 mmHg ECG Resting ECG: Sinus Bradycardia Clinical Reason for Termination: Completed protocol Exercise duration: 9 min sec Nurse Comments Recieved ambulatory, A/Ox4 on RA, connected to puddler pile driving, VS stable. PIV S/L flushes well, revi ewed POC, pt verbalized understanding. Michael LAMP SHADES SUPERVISOR here to monitor exam. Treadmill test performed per protocol. Pt stable, tolerated well, VS returned to baseline. Pt to follow up with on site construction superintendent for results. Stress ECG Conclusion lvef 80% normal perfusion scan no ischemia NM EXAM: Myocardial Perfusion REST/STRESS Imaging Protocol: Rest Tc-99m/Stress Tc-99m 1 day Resting Data Rest SPECT myocardial perfusion imaging was performed in supine position 45 minutes following the int ravenous injection of 12.4 mCi of Tc-99m Sestamibi. Time of rest injection: 09:20 Date: 01/17/2025 Time of rest imagin:05 Date: 01/17/2025 Administration Route: IV Administration Site: Right AC Exercise Stress At peak stress, the patient was injected intravenously with 31.6mCi of Tc-99m Sestamibi. Time of stress injection: 10:50 Date: 01/17/2025 Time of stress imagin:50 Date: 01/17/2025 Administration Route: IV Administration Site: Right AC Heart Rate at time of stress injection: 126 bpm. Gated Stress SPECT was performed 60 minutes after stress injection. The images were gated to evaluate regional wall motion and calculate left ventricular ejection fracti on. Stress only was performed in the Supine position. Nuclear Conclusion Nuclear Findings: negative for ischemia lvef 80% normal perfusion scan no ischemia
== END 2025-01-17 17:00 | disposition home or self-care (01) ==
LOC: XYW 08:54
PROVIDERS: ATTEND Internal Medicine
DX: R00.1 Bradycardia, unspecified (principal); R07.9 Chest pain, unspecified; I10 Essential (primary) hypertension; E78.5 Hyperlipidemia, unspecified
CPT/HCPCS: 78452; 93017

== ENCOUNTER 2025-03-15 13:41 | Outpatient (CLI) | payer OTHER | END 2025-03-15 17:00 | disposition home or self-care (01) | LOC: LAB 13:41 | PROVIDERS: ATTEND Student in an Organized Health Care Education/Training Program | DX: Z12.11 Encounter for screening for malignant neoplasm of colon (principal) | CPT/HCPCS: 82270 ==

== ENCOUNTER 2025-03-18 07:55 | Outpatient (CLI) | payer OTHER ==
[2025-03-18 08:40] LABS: Hematocrit 45.6 % (36.0-46.0); Hemoglobin 15.3 g/dL (12.2-16.2); Mean Corpuscular Hemoglobin 32.1 pg (28.0-32.0); Mean Corpuscular Volume 95.6 fL (80.0-100.0); Nucleated Red Blood Cells % 0.0 %
[2025-03-18 08:51] LABS: Urine Protein, UAD Negative (Negative)
[2025-03-18 08:56] LABS: Chloride 107 mmol/L (98-107); Potassium 3.9 mmol/L (3.5-5.1); Sodium 142 mmol/L (136-145)
[2025-03-18 08:57] LABS: Anion Gap 11 (5-15); Calcium 9.6 mg/dL (8.7-10.4); Carbon Dioxide 24 mmol/L (20-31)
[2025-03-18 09:00] LABS: Alkaline Phosphatase 88 U/L (46-116)
[2025-03-18 09:02] LABS: BUN/Creatinine Ratio 12.6 (10.0-20.0); Blood Urea Nitrogen 11 mg/dL (9-23); Triglycerides 90 mg/dL (< 150)
[2025-03-18 09:03] LABS: Total Protein 7.6 g/dL (5.7-8.2)
[2025-03-18 09:04] LABS: Albumin 4.8 g/dL (3.2-4.8); Cholesterol 170 mg/dL (< 200); Glucose 109 mg/dL (74-106)
[2025-03-18 09:05] LABS: Bilirubin, Total 0.7 mg/dL (0.2-1.0); HDL Cholesterol 70 mg/dL (40-59)
[2025-03-18 09:10] LABS: Alanine Aminotransferase 24 U/L (7-40)
[2025-03-18 10:35] LABS: Uric Acid 4.8 mg/dL (3.1-7.8)
== END 2025-03-18 17:00 | disposition home or self-care (01) ==
LOC: LAB 07:55
PROVIDERS: ATTEND Nurse Practitioner Family
DX: I10 Essential (primary) hypertension (principal); E78.5 Hyperlipidemia, unspecified; E03.9 Hypothyroidism, unspecified; E55.9 Vitamin D deficiency, unspecified; R03.0 Elevated blood-pressure reading, without diagnosis of hypertension
CPT/HCPCS: 36415; 80053; 80061; 81001; 82043; 82306; 83036; 84439; 84443; 84550; 85025